=== PATIENT | female | born 1975 | race African-American/Black ===

== ENCOUNTER 2020-05-22 13:38 | Emergency (ER) | payer MEDICAID ==
[~2020-05-22] VITALS: Ht 167.6 cm; Wt 80.0 kg
[~2020-05-22 13:38] MED LIST: OMEP20CA14 PO
[2020-05-22 13:49] VITALS: BP 147/78
[2020-05-22] MEDS ORDERED: PREDNISONE 20MG TABLET PO ONE ×2 (14:00→14:15)
[2020-05-22] MEDS ORDERED: DIPHENHYDRAMINE 25MG CAPSULE PO ONE (14:00)
[2020-05-22] MEDS ORDERED: FAMOTIDINE 20MG TABLET PO ONE (14:00)
[2020-05-22] MEDS ORDERED: FAMO-134 PO (14:18)
[2020-05-22] MEDS ORDERED: DIPH25CA83 MT (14:18)
[2020-05-22] MEDS ORDERED: P20 MT (14:18)
[2020-05-22] MEDS ORDERED: EPIN0.3P3 IM (14:18)
== END 2020-05-22 15:19 | disposition home or self-care (01) ==
LOC: ER 14:05
DX: T78.40XA Allergy, unspecified, initial encounter (principal); F12.10 Cannabis abuse, uncomplicated; Z98.51 Tubal ligation status; X58.XXXA Exposure to other specified factors, initial encounter
CPT/HCPCS: 81025; 99284; J7512